=== PATIENT | female | born 1975 | race Caucasian/White ===

== ENCOUNTER → 2017-05-08 | Day surgery (SDC) | payer OTHER ==
[~2017-05-08] MED LIST: LIDOCAINE 2% PF Vial for OR 5 ML VIAL.; PROPOFOL 40 ML IV
[2017-05-08] MEDS: IV RINGERS,LACTATED 1000ML 1,000 ML IV (09:41)
[2017-05-08 10:39] LABS: NEG OBC UR NEG; POS OBC UR POS
== END | disposition home or self-care (01) ==
LOC: ENDOS 08:53
DX: K64.0 First degree hemorrhoids (principal); J45.909 Unspecified asthma, uncomplicated; K21.9 Gastro-esophageal reflux disease without esophagitis; M19.90 Unspecified osteoarthritis, unspecified site; Z87.01 Personal history of pneumonia (recurrent); Z88.0 Allergy status to penicillin
CPT/HCPCS: 45378; 81025; J2704

== ENCOUNTER → 2017-09-16 | Outpatient (CLI) | payer OTHER ==
[~2017-09-16] MED LIST changes: +IOHEXOL 180 MG/ML 10 ML VIAL.; -LIDOCAINE 2% PF Vial for OR 5 ML VIAL.; -PROPOFOL 40 ML IV; +methylPREDNISolone ACETATE 40 MG/ML VIAL.; +methylPREDNISolone ACETATE 80 MG/ML VIAL.
== END | disposition home or self-care (01) ==
LOC: PNCL 10:29
DX: M51.16 Intervertebral disc disorders with radiculopathy, lumbar region (principal); K21.9 Gastro-esophageal reflux disease without esophagitis; M19.90 Unspecified osteoarthritis, unspecified site; Z79.899 Other long term (current) drug therapy; Z98.890 Other specified postprocedural states; G62.9 Polyneuropathy, unspecified; Z88.2 Allergy status to sulfonamides
CPT/HCPCS: 62323; J1030; J1040; Q9965

== ENCOUNTER → 2017-09-30 | Outpatient (CLI) | payer OTHER | END | disposition home or self-care (01) | LOC: PNCL 09:27 | DX: M51.16 Intervertebral disc disorders with radiculopathy, lumbar region (principal) | CPT/HCPCS: 62323; J1030; J1040; Q9965 ==

== ENCOUNTER → 2017-10-14 | Outpatient (CLI) | payer OTHER | LOC: PNCL 09:04 | DX: M51.16 Intervertebral disc disorders with radiculopathy, lumbar region (principal) | CPT/HCPCS: 62323; J1030; J1040; Q9965 ==

== ENCOUNTER → 2018-04-01 | Outpatient (CLI) | payer OTHER ==
[2017-05-08 10:43] VITALS: BP 103/60
[~2018-04-01] MED LIST changes: +DICL100T PO; +DICL75TA PO; +DOCU100C28 PO; +FLUT9.9S NS; +GABA-585 PO; -IOHEXOL 180 MG/ML 10 ML VIAL.; +LORA10TA3 PO; +LORA10TA68 PO; +MOME13HF IH; +MONT10TA9 PO; +NAPR-683 PO; +XOPENEX HFA15 GM IH; +XOPENEX1.25 MG/3 NEB; -methylPREDNISolone ACETATE 40 MG/ML VIAL.; -methylPREDNISolone ACETATE 80 MG/ML VIAL.
--- NOTE | 2018-04-02 00:08 | PAIN ---
DATE OF SERVICE: 04/01/2018 PROGRESS NOTE FOR PAIN CLINIC DIAGNOSES: Lumbar radiculopathy with lumbar degenerative disk disease and lumbar herniated disk. HISTORY OF PRESENT ILLNESS: The patient is a 42-year-old female who returns for followup status post lumbar epidural steroid injections x 3, last seen 10/14/2017. The patient did very well about 75% improvement after the last injection with the pain returning now in the low back and into the right lower extremity, mostly in the posterior gluteus, posterior thigh, posterior calf with some tenderness and tingling in the foot on the right side as well. The patient reports it is aching and sharp, dull in the back, shooting in the leg and thigh, becoming more constant in the back with time, did very well for about 2 months after the last injection with the pain gradually returning but still doing quite well overall. The patient reports no new motor or sensory deficits and no new bowel or bladder incontinence or other complaints. The patient reports the pain is 6 on a scale of 10 at its worst, 3-4 on average, 3 at its least and is a 3 today. The patient reports that she is sleeping much better, increasing activity, distance walking, working activities, household activities as well as sleeping better. The patient reports no new motor or sensory deficits or other complaints. PHYSICAL EXAMINATION: VITAL SIGNS: The patient's blood pressure 102/60, pulse 85, respirations are 16 and temperature 98.1 degrees Fahrenheit. Height is 5 feet 3 inches and weight is 192 pounds. GENERAL: The patient is awake, alert, oriented, appropriate and very pleasant demeanor. HEENT: Head shows normocephalic and atraumatic. Extraocular movements are intact and symmetrical. Oral cavity: Mucous membranes are moist and pink. Dentition is intact. NECK: Shows anterior throat supple without palpable lymphadenopathy noted. Swallow reflex is symmetrical. CHEST: Shows normal on inspection. Breath sounds are clear to auscultation bilaterally. HEART: Shows S1 and S2 clear. No murmurs auscultated. ABDOMEN: Soft, nontender and nondistended. No palpable organomegaly is noted. No rebound or guarding demonstrated. BACK: Shows spine grossly in the midline. Normal appearing thoracic kyphosis and minor flattening of the lumbar lordotic curvature. Lumbar paraspinous musculature shows symmetrical on inspection, on palpation shows some moderate tenderness throughout the upper, middle and lower distribution of the paraspinous muscles diffusely without radiation. The patient has good rotational motion of the lumbar spine, both laterally as well as extension and flexion without significant difficulty. No tenderness over the sacrum or sacroiliac regions. EXTREMITIES: Lower extremities show deep tendon reflexes 2+ in the patellar, 1+ tendo-calcaneus tendons. Motor exam is approximately 4 on a scale 5 over the right with dorsiflexion and extension, 5/5 on the left, quadriceps and hamstring flexion 5/5 equal bilaterally. Peripheral pulses are 1+ posterior tibial. No peripheral edema is noted bilaterally. Straight leg raise noted to be mildly positive on the right at approximately 40-45 degrees but decreased with knee flexion, left side is negative. The patient's old chart was reviewed as well as her current medication regimen updated. Current review of systems updated today as well. The patient's options were discussed. We will preauthorize the patient for a lumbar epidural steroid injection. She did very well with these in the past and would like to proceed with repeat injection. The patient will continue to do stretching and strengthening exercises on her own as she has been doing as well as walking daily, which she does quite a bit at work as well as on her own outside of work. The patient will follow up in approximately 2 weeks and plan on lumbar epidural steroid injection at that time. DOLORES PARADA MD DR: STEFANO/regina JOB#: [id number] / [id number]
== END | disposition home or self-care (01) ==
LOC: PNCL 09:18
PROVIDERS: ATTEND Anesthesiology
DX: M51.16 Intervertebral disc disorders with radiculopathy, lumbar region (principal)
CPT/HCPCS: 99212

== ENCOUNTER → 2018-04-16 | Outpatient (CLI) | payer OTHER ==
[2017-05-08 10:43] VITALS: BP 103/60
[~2018-04-16] MED LIST changes: +IOHEXOL 180 MG/ML 10 ML VIAL. ONE; +methylPREDNISolone ACETATE 40 MG/ML VIAL. ONE; +methylPREDNISolone ACETATE 80 MG/ML VIAL. ONE
--- NOTE | 2018-04-16 20:16 | PAIN ---
DATE OF SERVICE: 04/16/2018 PROGRESS NOTE FOR PAIN CLINIC DIAGNOSES: Lumbar radiculopathy with lumbar degenerative disk disease and lumbar herniated disk. HISTORY OF PRESENT ILLNESS: The patient is a 42-year-old female who returns for followup status post previous lumbar epidural steroid injections with good results about 70% improvement to 75% improvement overall. The pain is returning in the low back and right lower extremity, posterior gluteus, posterior thigh and posterior calf; tingling, aching, shooting, throbbing, radiating, becoming more severe, on and off in intensity, worse with walking, standing, changing positions, better with sitting or lying down but awakens her from sleep occasionally if she lies on her right side. The patient reports initially she is able to return to work duties, doing household activities with greater ease and comfort as well as walking with much more comfort. The patient reports no new motor or sensory deficits and no new bowel or bladder incontinence. Reports her pain is 7 on a scale of 10 at its worst, 6 on average and a 4 at its least and is a 4 today. The patient reports otherwise doing well. I would like to proceed with her next injection today. PHYSICAL EXAMINATION: VITAL SIGNS: The patient's blood pressure 123/69, pulse 77, respirations are 18 and temperature 97.7 degrees Fahrenheit. Height is 5 feet 3 inches and weight is 189 pounds. GENERAL: The patient is awake, alert, oriented, appropriate and very pleasant demeanor. HEENT: Head shows normocephalic and atraumatic. Extraocular movements are intact and symmetrical. Oral cavity: Mucous membranes are moist and pink. Dentition is intact. NECK: Shows anterior throat supple without palpable lymphadenopathy noted. Swallow reflex is symmetrical. CHEST: Shows normal on inspection. Breath sounds clear to auscultation bilaterally. HEART: Shows S1 and S2 clear. No murmurs auscultated. ABDOMEN: Obese, soft, nontender and nondistended. No palpable organomegaly is noted. No rebound or guarding demonstrated. BACK: Shows spine grossly in the midline. Normal-appearing thoracic kyphosis and lumbar lordotic curvature. Lumbar paraspinous muscle shows symmetrical on inspection and palpation shows some moderate tenderness but only diffusely in the low lumbar distribution without radiation. EXTREMITIES: Lower extremities show deep tendon reflexes 2+ in the patellar, 1+ tendo-calcaneus tendons. Motor exam is approximately 4 on a scale of 5 with right dorsiflexion and extension, 5/5 on the left. Peripheral pulses are 1+ posterior tibial. No peripheral edema is noted. Options were discussed with the patient. The patient's old chart was reviewed as well as her current medication regimen updated. Current review of systems updated today as well. We will proceed with a first in this series of lumbar epidural steroid injection today with fluoroscopic guidance. Risks were again discussed including, but not limited to bleeding, infection, possibility of epidural hematoma and subsequent neurological compromise, dural puncture, headaches, spinal cord and/or nerve damage, side effects of steroid medication and poor results regarding pain control. The patient understands and wished to proceed. The patient will return to the clinic in approximately 2 weeks for followup, was counseled as to return appointment, activity level and side effects to be aware of. DIAGNOSES: Lumbar radiculopathy with lumbar degenerative disk disease and lumbar herniated disk. PROCEDURES: Lumbar epidural steroid injection, translaminar approach, L5-S1 level using C-arm fluoroscopic guidance under sterile prep and drape using local anesthetic. MEDICATION INJECTED: A total of 120 mg Depo-Medrol plus 10 mL of preservative-free normal saline and 2 mL of Isovue for contrast. CONDITION AT DISCHARGE: Stable. The patient tolerated the procedure well and had no complications. DOLORES PARADA MD DR: STEFANO/regina JOB#: [id number] / [id number]
== END | disposition home or self-care (01) ==
LOC: PNCL 07:53
PROVIDERS: ATTEND Anesthesiology
DX: M51.16 Intervertebral disc disorders with radiculopathy, lumbar region (principal); Z88.2 Allergy status to sulfonamides
CPT/HCPCS: 62323; J1030; J1040; Q9965

== ENCOUNTER → 2018-06-30 | Outpatient (CLI) | payer OTHER ==
[2017-05-08 10:43] VITALS: BP 103/60
[~2018-06-30] MED LIST changes: -IOHEXOL 180 MG/ML 10 ML VIAL. ONE; -methylPREDNISolone ACETATE 40 MG/ML VIAL. ONE; -methylPREDNISolone ACETATE 80 MG/ML VIAL. ONE
--- NOTE | 2018-06-30 16:01 | PAIN ---
DATE OF SERVICE: 06/30/2018 DIAGNOSES: Lumbar radiculopathy with lumbar degenerative disk disease, lumbar herniated disk. HISTORY OF PRESENT ILLNESS: The patient is a 42-year-old female who returns for followup status post lumbar epidural steroid injection on 04/16/2018. The patient did very well with this, with about 60% improvement initially from the injection, but the pain is returning now in the right greater than left lower extremity, with some weakness in the right leg, worse over the past week or two. For the first month, 4-5 weeks, she was doing much better, with the pain returning now over the past week or so. The patient reports it is 7 on a scale of 10 at its worst, 4 on average, 4 at its least and is a 4 today. The patient reports it is aching, shooting, tingling, constant, becoming more radiating, burning, posterior gluteus, posterior thigh, posterior calf, more on the right than the left, also in the sole of the foot and the heel, feels like a burning, stinging pain on the right side that is becoming more constant. The patient reports it is waking her up from sleep at night. She has been applying heat packs which helps, but it has been very difficult to control. The patient reports no new motor or sensory deficits, no new bowel or bladder incontinence or other complaints, but initially was doing much better with distance walking, doing work and household activities with much greater ease and comfort, now significantly returning again, more so on the right than the left lower extremity in a radicular fashion and L5-S1 dermatomal distribution. PHYSICAL EXAMINATION: VITAL SIGNS: The patient's blood pressure 117/43, pulse 66, respirations 16, temperature 98.2 degrees Fahrenheit, height 5 feet 3 inches, weight is 195 pounds. GENERAL: The patient is awake, alert, oriented, appropriate, very pleasant demeanor. HEENT: Head is normocephalic, atraumatic. Extraocular movements are intact and symmetrical. Oral cavity: Mucous membranes moist and pink. Dentition intact. NECK: Shows anterior throat supple without palpable lymphadenopathy noted. Swallow reflex symmetrical. CHEST: Shows normal with inspection. Breath sounds clear to auscultation bilaterally. HEART: Shows S1, S2 clear. No murmurs auscultated. ABDOMEN: Obese, soft, nontender, nondistended. No palpable organomegaly is noted. No rebound or guarding demonstrated. BACK: Shows spine grossly in the midline. Normal appearing thoracic kyphosis and lumbar lordotic curvature. Lumbar paraspinous muscle shows symmetrical on inspection, on palpation shows some moderate tenderness diffusely bilaterally, but only diffusely without significant radiation. EXTREMITIES: The patient's lower extremities show deep tendon reflexes at 2+ in the patellar, 1+ tendo-calcaneus tendons. Motor exam is approximately 4 on a scale of 5 with right dorsiflexion, extension, 5/5 on the left. Peripheral pulses are 1+ posterior tibia. No peripheral edema is noted bilaterally. Options were discussed with the patient. The patient's old chart was reviewed as her current medication regimen updated. Current review of systems updated today as well. We will proceed with a preauthorization for additional lumbar epidural steroid injections. She did very well after the first injection with about 60% improvement for the first 5-6 weeks, now pain returning again worse on the right than the left lower extremity in radicular fashion in an L5-S1 dermatomal pattern. We will preauthorize the patient for a translaminar L5-S1 lumbar epidural steroid injection. Once this is approved, the patient will return and proceed at that time. DOLORES PARADA MD DR: STEFANO/regina JOB#: [id number] / [id number]
== END | disposition home or self-care (01) ==
LOC: PNCL 13:41
PROVIDERS: ATTEND Anesthesiology
DX: M51.16 Intervertebral disc disorders with radiculopathy, lumbar region (principal)
CPT/HCPCS: G0463

== ENCOUNTER → 2018-07-02 | Outpatient (CLI) | payer OTHER ==
[2017-05-08 10:43] VITALS: BP 103/60
[~2018-07-02] MED LIST changes: +IOHEXOL 180 MG/ML 10 ML VIAL. ONE; +methylPREDNISolone ACETATE 40 MG/ML VIAL. ONE; +methylPREDNISolone ACETATE 80 MG/ML VIAL. ONE
--- NOTE | 2018-07-02 17:21 | PAIN ---
DATE OF SERVICE: 07/02/2018 DIAGNOSES: Lumbar radiculopathy with lumbar degenerative disk disease, lumbar herniated disk HISTORY OF PRESENT ILLNESS: The patient is a 42-year-old female who returns for followup status post lumbar epidural steroid injection x 1 on 04/16/2018. The patient did well with this, about 60% improvement after the injection with the pain returning and she was seen 2 days ago for a preauthorization. She has obtained that now, would like to proceed with a second lumbar epidural steroid injection. At this time, the patient reports pain across the low back and the right lower extremity, posterior gluteus, posterior thigh, posterior calf, tingling, radiating, becoming more constant, sharp, shooting pain, throbbing in the leg as well and becoming more constant pain. The patient reports it is a 7 on a scale of 10 at its worst, 4 on average, 3 at its least and is a 4 today. The patient reports no new motor or sensory deficits, no new bowel or bladder incontinence. PHYSICAL EXAMINATION: VITAL SIGNS: The patient's blood pressure is 132/70, pulse 72, respirations 16. The patient's temperature 97.9 degrees Fahrenheit, height is 5 feet 3 inches and weight is 195 pounds. GENERAL: The patient is awake, alert, oriented, appropriate, very pleasant demeanor. HEENT: Shows normocephalic, atraumatic. Extraocular movements intact and symmetrical. Oral cavity: Mucous membranes moist and pink. Dentition is intact. NECK: Shows anterior throat supple without palpable lymphadenopathy noted. Swallow reflex is symmetrical. CHEST: Shows normal with inspection. Breath sounds clear to auscultation bilaterally. HEART: Shows S1, S2 clear. No murmurs auscultated. ABDOMEN: Soft, nontender, nondistended. No palpable organomegaly is noted. No rebound or guarding demonstrated. BACK: Shows spine grossly in the midline. Normal appearing thoracic kyphosis and some minor flattening of lumbar lordotic curvature. Lumbar paraspinous musculature shows symmetrical on inspection, on palpation shows some moderate tenderness diffusely bilaterally without radiation. EXTREMITIES: The patient's lower extremities show deep tendon reflexes at 2+ in the patellar, 1+ tendo calcaneus tendons. Motor exam is approximately 4 on a scale of 5 on the right with dorsiflexion and extension, 5/5 on the left. Peripheral pulses are 1+ posterior tibia. No peripheral edema is noted bilaterally. Options were discussed with the patient. The patient's old chart was reviewed as her current medication regimen and updated. Current review of systems is updated today as well and we will proceed with a second lumbar epidural steroid injection today with fluoroscopic guidance. Risks were again discussed including, but not limited to bleeding, infection, possibility of epidural hematoma and subsequent neurological compromise, dural puncture headache, spinal cord and/or nerve damage, side effects of steroid medication and poor results regarding pain control. The patient understands and wished to proceed. The patient to return to clinic in approximately 2 weeks for followup, was counseled as to return appointment, activity level and side effects to be aware of. DIAGNOSES: Lumbar radiculopathy with lumbar degenerative disk disease, lumbar herniated disk. PROCEDURE: Lumbar epidural steroid injection, translaminar approach L5-S1 level using C-arm fluoroscopic guidance under sterile prep and drape using local anesthetic. MEDICATION INJECTED: A total of 120 mg Depo-Medrol plus 10 mL of preservative-free normal saline and 2 mL of Isovue for contrast. CONDITION AT DISCHARGE: Stable. The patient tolerated procedure well, had no complications. DOLORES PARADA MD DR: STEFANO/regina JOB#: [id number] / [id number]
== END | disposition home or self-care (01) ==
LOC: PNCL 11:40
PROVIDERS: ATTEND Anesthesiology
DX: M51.16 Intervertebral disc disorders with radiculopathy, lumbar region (principal); M79.661 Pain in right lower leg; Z98.890 Other specified postprocedural states
CPT/HCPCS: 62323; J1030; J1040; Q9965

== ENCOUNTER → 2018-07-23 | Outpatient (CLI) | payer OTHER ==
[2017-05-08 10:43] VITALS: BP 103/60
[~2018-07-23] MED LIST changes: -IOHEXOL 180 MG/ML 10 ML VIAL. ONE; -methylPREDNISolone ACETATE 40 MG/ML VIAL. ONE; -methylPREDNISolone ACETATE 80 MG/ML VIAL. ONE
--- NOTE | 2018-07-24 00:45 | PAIN ---
DATE OF SERVICE: 07/23/2018 PROGRESS NOTE FOR PAIN CLINIC DIAGNOSES: Lumbar radiculopathy with lumbar degenerative disk disease, lumbar herniated disk. HISTORY OF PRESENT ILLNESS: The patient is a 42-year-old female who returns for followup status post lumbar epidural steroid injection x 2. The patient reports about 70% improvement after the last injection, still doing well, still some pain in the low back, right lower extremity. The patient was awaiting preauthorization, has obtained that now, would like to proceed. The patient reports the pain is 7 on a scale of 10 at its worst, 4 to 5 on average and 2 at its least and is a 4 today. The patient reports it is across the low back and right lower extremity, posterior gluteus, posterior thigh, posterior calf, aching, sharp, dull, shooting, tingling, burning, becoming more constant, more radiating in the right lower extremity. The patient reports no loss of motor function, but still significant pain in the right leg and low back as described. The patient reports no new motor or sensory deficits, no new bowel or bladder incontinence or other complaints. PHYSICAL EXAMINATION: VITAL SIGNS: The patient's blood pressure 94/61, pulse 70, respirations are 16, temperature 97.8 degrees Fahrenheit, and weight is 198 pounds. GENERAL: The patient is awake, alert, oriented, appropriate, very pleasant demeanor. HEENT: Head is normocephalic, atraumatic. Extraocular movements intact and symmetrical. Oral cavity: Mucous membranes moist and pink. Dentition intact. NECK: Shows anterior throat supple without palpable lymphadenopathy noted. Swallow reflex is symmetrical. CHEST: Shows normal on inspection. Breath sounds clear to auscultation bilaterally. HEART: Shows S1, S2 clear. No murmurs auscultated. ABDOMEN: Soft, nontender, nondistended. No palpable organomegaly noted. Obese. BACK: Shows spine grossly in the midline. Normal appearing thoracic kyphosis and lumbar lordotic curvature. Lumbar paraspinous muscle shows symmetrical on inspection with palpation shows some moderate tenderness only in the lower lumbar distribution bilaterally without radiation, without trigger points or atrophy or hypertrophy. The patient has good rotational motion of lumbar spine, both laterally as well as extension and flexion without difficulty. EXTREMITIES: The patient's lower extremities show deep tendon reflexes 2+ in the patellar, 1+ tendo-calcaneus tendon. Motor exam is approximately 4 on a scale of 5 on the right dorsiflexion, extension and 5/5 on the left. Peripheral pulses are 1+ posterior tibial. No peripheral edema is noted. Options were discussed with the patient. The patient's old chart was reviewed as well as her current medication regimen updated. Current review of systems updated today as well. We will proceed with a third in the series of lumbar epidural steroid injection today with fluoroscopic guidance. Risks were again discussed including, but not limited to bleeding, infection, possibility of epidural hematoma, subsequent neurological compromise, dural puncture, headaches, spinal cord and/or nerve damage, side effects of steroid medication and poor results regarding pain control. The patient understands and wished to proceed. The patient will return to clinic in approximately 2 weeks for followup, was counseled as to return appointment, activity level and side effects to be aware of. DIAGNOSES: Lumbar radiculopathy with lumbar degenerative disk disease, lumbar herniated disk. PROCEDURE: Lumbar epidural steroid injection, translaminar approach at the L5-S1 level using C-arm fluoroscopic guidance under sterile prep and drape using local anesthetic. MEDICATION INJECTED: A total of 120 mg Depo-Medrol plus 10 mL of preservative-free normal saline and 2 mL of Isovue for contrast. CONDITION AT DISCHARGE: Stable. The patient tolerated the procedure well, had no complications. DOLORES PARADA MD DR: STEFANO/regina JOB#: [id number] / [id number]
== END | disposition home or self-care (01) ==
LOC: PNCL 10:10
PROVIDERS: ATTEND Anesthesiology
DX: M51.16 Intervertebral disc disorders with radiculopathy, lumbar region (principal); Z88.2 Allergy status to sulfonamides
CPT/HCPCS: 62323; Q9965

== ENCOUNTER → 2018-10-05 | Outpatient (CLI) | payer OTHER ==
[2017-05-08 10:43] VITALS: BP 103/60
--- NOTE | 2018-10-06 02:16 | PAIN ---
DATE OF SERVICE: 10/05/2018 DIAGNOSIS: Lumbar radiculopathy with lumbar degenerative disk disease and lumbar herniated disk. HISTORY OF PRESENT ILLNESS: The patient is a 42-year-old female who returns for followup status post lumbar epidural steroid injections x 3, most recently 07/23/2018. The patient did very well with that, approximately 70% improvement for several weeks. The patient reports about 2 days ago the pain became much more noticeable and different in her low back, is now on her left side as well as the right side with some spasms and pain in the back itself. The patient went to the Emergency Department near her and received a Toradol shot, which helped temporarily, but was able to straighten her back up better. The patient reports no inciting incident, no new injuries or accidents or any other cause that she can pinpoint for the pain to change or get worse. We did review her MRI scan from about 1 year ago showing significant L5-S1 disk herniation abutting the S1 nerve roots bilaterally. The patient reports the pain is burning, sharp, tight, radiating, becoming more constant into the lower extremities, posterior gluteus, posterior thighs, again worse on the right, but present now on the left as well and some pain radiating up into the mid back on the left side also. The patient reports no loss of motor function, but significant pain with activity, standing, walking, even trouble sleeping, bending, flexing is becoming very difficult for her and especially ambulating. The patient rates pain as 7 on a scale of 10 at its worst, 5-6 on average, 5 at its least and is 6 today. The patient reports no new motor or sensory deficits, no new bowel or bladder incontinence or other complaints. PHYSICAL EXAMINATION: VITAL SIGNS: The patient's blood pressure is 94/52, pulse 83, respirations 16, temperature 98.1 degrees Fahrenheit, weight is 202 pounds. GENERAL: The patient is awake, alert, oriented, appropriate, very pleasant demeanor. HEENT: Head is normocephalic, atraumatic. Extraocular movements are intact, symmetrical. Oral cavity: Mucous membranes moist and pink. Dentition is intact. NECK: Shows anterior throat supple without palpable lymphadenopathy noted. Swallow reflex symmetrical. CHEST: Shows normal with inspection. Breath sounds clear to auscultation bilaterally. HEART: Shows S1, S2 clear. No murmurs auscultated. ABDOMEN: Obese, soft, nontender, nondistended. No palpable organomegaly is noted. No rebound or guarding demonstrated. BACK: Shows spine grossly in the midline. Normal-appearing thoracic kyphosis and lumbar lordotic curvature. Lumbar paraspinous muscle shows symmetrical on inspection, very firm musculature throughout the upper, middle and lower distribution of paraspinous muscles, which are bilaterally without atrophy, hypertrophy, without radiation of pain. The patient has good rotational motion of lumbar spine, both laterally as well as extension and flexion with some moderate tenderness with forward flexion on the left side of the lumbar spine. EXTREMITIES: Lower extremities show deep tendon reflexes 2+ in the patellar, 1+ tendo-calcaneus tendons. Motor exam is strong with approximately 4 on a scale of 5 right dorsiflexion and extension, 5/5 on the left. Peripheral pulses are 1+ posterior tibia. No peripheral edema is noted bilaterally. Options were discussed with the patient. The patient's old chart was reviewed as her current medication regimen updated. Current review of systems updated today as well. We will preauthorize the patient for a lumbar epidural steroid injection as the first in this new series. It has been 6 months since her original back in 04/2018. The patient also will check MRI scan, it has been over a year since she has had one with new findings of bilateral radiculopathy with history of L5-S1 herniated disk and new symptoms of bilateral radiculopathy and weakness in the lower extremities, right and left. The patient will follow up after MRI scan. We will plan on potential lumbar epidural steroid injection at that time with approval. DOLORES PARADA MD DR: STEFANO/regina JOB#: [id number] / [id number]
== END | disposition home or self-care (01) ==
LOC: PNCL 07:33
PROVIDERS: ATTEND Anesthesiology
DX: M51.16 Intervertebral disc disorders with radiculopathy, lumbar region (principal)
CPT/HCPCS: G0463

== ENCOUNTER → 2018-10-18 | Outpatient (CLI) | payer OTHER ==
[2017-05-08 10:43] VITALS: BP 103/60
[~2018-10-18] MED LIST changes: +IOHEXOL 180 MG/ML 10 ML VIAL. ONE; +methylPREDNISolone ACETATE 40 MG/ML VIAL. ONE; +methylPREDNISolone ACETATE 80 MG/ML VIAL. ONE
--- NOTE | 2018-10-18 23:25 | PAIN ---
DATE OF SERVICE: 10/18/2018 PROGRESS NOTE FOR PAIN CLINIC: DIAGNOSES: Lumbar radiculopathy with lumbar degenerative disk disease with lumbar herniated disk. HISTORY OF PRESENT ILLNESS: The patient is a 42-year-old female who returns for followup status post lumbar epidural steroid injections x 3, most recently 07/23/2018. The patient did very well with these, but the pain is returning in the low back and bilateral lower extremities, somewhat more on the left than the right at this time. We did get an MRI scan obtained, which shows L5-S1 degenerative with loss of disk height identified with diffuse loss of disk signal, small diffuse posterior disk bulge identified, lateral recesses are partially effaced, both foramina appear mildly narrowed. Other levels are normal. The patient reports still significant pain in the low back, bilateral lower extremities, somewhat more on the left than the right at this time, but present bilaterally, posterior gluteus, posterior thighs, posterior calves. The patient reports it is a 7 on a scale of 10 at its worst, 5 on average, 4 at its least and is a 5 today. The patient reports it is sharp and dull in the back as well as tight in the back and thigh, shooting into the lower extremities, burning, tingling, radiating as well. The patient reports a pressure sensation, also some urgency with urination, but no incontinence. The patient reports no new bowel or bladder incontinence or other complaints. No new motor or sensory deficits. PHYSICAL EXAMINATION: VITAL SIGNS: The patient's blood pressure is 124/56, pulse 84, respirations 18, temperature 97.8 degrees Fahrenheit. Height is 5 feet 3 inches, weight is 200 pounds. GENERAL: The patient is awake, alert, oriented, appropriate, very pleasant demeanor. HEENT: Head shows normocephalic, atraumatic. Extraocular movements are intact, symmetrical. Oral cavity: Mucous membranes moist and pink. Dentition is intact. NECK: Shows anterior throat supple without palpable lymphadenopathy noted. Swallow reflex is symmetrical. CHEST: Shows normal on inspection. Breath sounds clear to auscultation bilaterally. HEART: Shows S1, S2 clear. No murmurs auscultated. ABDOMEN: Soft, nontender, nondistended. No palpable organomegaly is noted. No rebound or guarding demonstrated. BACK: Shows spine grossly in the midline. Normal appearing thoracic kyphosis and lumbar lordotic curvature. The patient's neck shows good rotational motion of lumbar spine, both laterally as well as extension and flexion without significant difficulty or pain reported. EXTREMITIES: The patient's lower extremities show deep tendon reflexes at 2+ in the patellar, 1+ tendo-calcaneus tendons. Motor exam is strong with 5/5 dorsiflexion on the left and 4/5 on the right. Peripheral pulses are 1+ posterior tibia. No peripheral edema is noted bilaterally. Options were discussed with the patient. The patient's old chart was reviewed as her current medication regimen updated. Current review of systems updated today as well. We will proceed with a first in the series of lumbar epidural steroid injection today with fluoroscopic guidance. Risks were again discussed including, but not limited to bleeding, infection, possibility of epidural hematoma, subsequent neurologic compromise, dural puncture headaches, spinal cord and/or nerve damage, side effects of steroid medication and poor results regarding pain control. The patient understands and wished to proceed. The patient will return to clinic in approximately 2 weeks for followup. She was counseled as to return appointment, activity level and side effects to be aware of. DIAGNOSES: Lumbar radiculopathy with lumbar degenerative disk disease with lumbar herniated disk. PROCEDURE: Lumbar epidural steroid injection, translaminar approach at L5-S1 level using C-arm fluoroscopic guidance under sterile prep and drape using local anesthetic. MEDICATION INJECTED: A total of 120 mg Depo-Medrol plus 10 mL of preservative-free normal saline and 2 mL of Isovue for contrast. CONDITION AT DISCHARGE: Stable. The patient tolerated procedure well, had no complications. DOLORES PARADA MD DR: STEFANO/regina JOB#: [id number] / [id number]
== END | disposition home or self-care (01) ==
LOC: PNCL 09:16
PROVIDERS: ATTEND Anesthesiology
DX: M51.16 Intervertebral disc disorders with radiculopathy, lumbar region (principal); Z88.2 Allergy status to sulfonamides
CPT/HCPCS: 62323; J1030; J1040; Q9965

== ENCOUNTER → 2018-11-05 | Outpatient (CLI) | payer OTHER ==
[2017-05-08 10:43] VITALS: BP 103/60
--- NOTE | 2018-11-06 05:12 | PAIN ---
DATE OF SERVICE: 11/05/2018 PROGRESS NOTE FOR PAIN CLINIC: DIAGNOSES: Lumbar radiculopathy with lumbar degenerative disk disease, lumbar herniated disk. HISTORY OF PRESENT ILLNESS: The patient is a 42-year-old female who returns for followup status post lumbar epidural steroid injection x 1 in the series. The patient reports about 40% improvement overall after the last injection, the tingling pain has gone in her legs, but she still has some paresthesia and some crawling sensations in the anterior thighs. The patient reports mostly in the posterior gluteus, across the low back radiating to the posterior thighs, posterior calves, again with some tingling and some crawling sensation in the anterior thigh. The patient reports also some decreased mobility with coordination, has been stumbling and tripping almost daily. Also, some increased urgency with both the bowel and bladder, but without incontinence. The patient reports it wakes her up from sleep about every 5 or 6 hours. She has increased her distance walking, doing better with activities at home and work as well as traveling with better ease and comfort. The patient reports no new motor or sensory deficits. No new bowel and bladder incontinence. Rates her pain as a 5 on a scale of 10 at its worse over the past week, 3-5 on average, 2 at its least and is 3 today. The patient reports it is aching and tight, radiating, becoming more constant with walking, standing, better with sitting or lying down. PHYSICAL EXAMINATION: VITAL SIGNS: The patient's blood pressure is 128/79, pulse 80, respirations 18, temperature 98.0 degrees Fahrenheit, height is 5 feet 3 inches, weighs 201 pounds. GENERAL: The patient is awake, alert, oriented, appropriate, very pleasant demeanor. HEENT: Head shows normocephalic, atraumatic. Extraocular muscles are intact and symmetrical. Oral cavity: Mucous membranes moist and pink. Dentition is intact. NECK: Shows anterior throat supple without palpable lymphadenopathy noted. Swallow reflex symmetrical. CHEST: Shows normal with inspection. Breath sounds are clear to auscultation bilaterally. HEART: S1, S2 clear. No murmurs auscultated. ABDOMEN: Soft, nontender, nondistended. BACK: Shows spine grossly in the midline. Lumbar paraspinous motion shows symmetrical on inspection, on palpation shows some moderate tenderness throughout the upper, middle and lower distribution of paraspinous muscles, but without tenderness over the spinous processes, sacrum or sacroiliac regions. The patient has good rotational motion of lumbar spine both laterally as well as extension and flexion without significant difficulty. EXTREMITIES: Lower extremities show deep tendon reflexes at 2+ in the patellar, 1+ tendo calcaneus tendons. Motor exam is approximately 4 on a scale of 5 right dorsiflexion and extension, 5/5 on the left. Peripheral pulses of 1+ posterior tibia. Options were discussed with the patient. The patient's old chart was reviewed as well as her current medication regimen updated. Current review of systems updated today as well. We will proceed with the second in the series of lumbar epidural steroid injection today under fluoroscopic guidance. Risks were again discussed including, but not limited to bleeding, infection, possibility of epidural hematoma and subsequent neurological compromise, dural puncture headaches, spinal cord and/or nerve damage, side effects of steroid medication and poor results regarding pain control. The patient understands and wished to proceed. The patient will return to clinic in approximately 2 weeks for followup, was counseled as to return appointment, activity level and side effects to be aware of. DIAGNOSES: Lumbar radiculopathy with lumbar degenerative disk disease, lumbar herniated disk. PROCEDURE: Lumbar epidural steroid injection, translaminar approach L5-S1 level using C-arm fluoroscopic guidance under sterile prep and drape using local anesthetic. MEDICATION INJECTED: A total of 120 mg of Depo-Medrol plus 10 mL of preservative-free normal saline and 2 mL of Isovue contrast. CONDITION AT DISCHARGE: Stable. The patient tolerated the procedure well, had no complications. DOLORES PARADA MD DR: STEFANO/regina JOB#: [id number] / [id number]
== END ==
LOC: PNCL 09:00
PROVIDERS: ATTEND Anesthesiology
DX: M51.16 Intervertebral disc disorders with radiculopathy, lumbar region (principal)
CPT/HCPCS: 62323; J1030; J1040; Q9965

== ENCOUNTER → 2019-02-11 | Outpatient (CLI) | payer OTHER ==
[2017-05-08 10:43] VITALS: BP 103/60
[~2019-02-11] MED LIST changes: +MONT10TA49 PO; -MONT10TA9 PO
--- NOTE | 2019-02-11 21:06 | PAIN ---
DATE OF SERVICE: 02/11/2019 DIAGNOSES: Lumbar radiculopathy with lumbar degenerative disk disease with lumbar herniated disk. HISTORY OF PRESENT ILLNESS: The patient is a 43-year-old female who returns for followup status post lumbar epidural steroid injection x 2. The patient reports about 50% improvement after the last injection for about 2 weeks following the injection. The patient reports she has had two instances where she has fallen on stairs once climbing up and once climbing down because of some increased numbness and tingling in her low back and legs, mostly in the right greater than left at this time. Still some aching and itching sensation on the left leg with numbness and tingling in the left foot and aching and tingling, burning, stabbing pain radiating in the right leg. The patient reports it is aching and sharp across the low back, tight and shooting as well, on and off in intensity, but always present to some extent. The patient reports it is worse with sitting in upright position such as in the high back chair and she feels better with lying down, bending her knees up to flatten the lumbar lordotic curvature of the lumbar spine. The patient reports it awakens her from sleep at least every 6-7 hours. The patient reports no loss of motor function, no new motor or sensory deficits, no bowel or bladder incontinence. The patient has difficulty with her right foot planting it enough to negotiate stairs as well. PHYSICAL EXAMINATION: VITAL SIGNS: The patient's blood pressure 93/57, pulse 80, respirations 16, temperature 98.0 degrees Fahrenheit, height is 5 feet 3 inches and weight is 202 pounds. GENERAL: The patient is awake, alert, oriented, appropriate, very pleasant demeanor. HEENT: Head shows normocephalic, atraumatic. Extraocular movements are intact and symmetrical. Oral cavity: Mucous membranes moist and pink. NECK: Shows anterior throat supple. CHEST: Shows normal on inspection. Breath sounds clear to auscultation bilaterally. HEART: Shows S1, S2 clear. ABDOMEN: Soft, nontender, nondistended. BACK: Shows spine grossly in the midline, normal-appearing cervical lordotic curvature, thoracic kyphotic curvature and lumbar lordotic curvature. Lumbar paraspinous muscle shows symmetrical on inspection, with palpation shows some moderate tenderness throughout the middle and lower distribution of paraspinous muscles diffusely without radiation. EXTREMITIES: Lower extremities show deep tendon reflexes 2+ in the patellar, 1+ tendo-calcaneus tendons. Motor exam is approximately 4 on a scale of 5 on the right with dorsiflexion, extension and 5/5 on the left. Peripheral pulses are 1+ posterior tibia. No peripheral edema is noted bilaterally. Options were discussed with the patient. The patient's old chart was reviewed as her current medication regimen updated. Current review of systems updated today as well. We will proceed with a third in the series of lumbar epidural steroid injection today with fluoroscopic guidance. Risks were again discussed including, but not limited to bleeding, infection, possibility of epidural hematoma, subsequent neurological compromise, dural puncture, headaches, spinal cord and/or nerve damage, side effects of steroid medication and poor results regarding pain control. The patient understands and wished to proceed. The patient will return to clinic in approximately 2 weeks for followup. She was counseled as to return appointment, activity level and side effects to be aware of. The patient is requesting documentation for her place of employment with guidelines, recommendations, and restrictions. The patient has diagnosed medical conditions of lumbar radiculopathy with lumbar herniated disk, major life activities affected by the medical conditions is difficulty with prolonged sitting, prolonged walking, negotiating stairs, social limitations, and use of mitigating measures. The patient should not sit upright position with greater than 20 minutes without lying down for 5-10 minutes with her knees bent to flatten the lumbar spine if sex, inability to perform her job duties if she is not able to change positions as necessary to decrease the pain when she is at work sitting in upright position for her working shift with lying down for 5-10 minutes. This decreases the pain significantly and she is able to work further. Functional limitations imposed on her if these are not utilize that she be unable to perform her work duties as she is unable to sit for prolonged periods, greater than 20-30 minutes, it may become where she is unable to concentrate with her activities at work and focus on her work duties without these accommodations. 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 DIAGNOSES: Lumbar radiculopathy with lumbar degenerative disk disease with lumbar herniated disk. PROCEDURE: Lumbar epidural steroid injection, translaminar approach L5-S1 level using C-arm fluoroscopic guidance under sterile prep and drape using local anesthetic. MEDICATION INJECTED: The patient received a total of 120 mg Depo-Medrol plus 10 mL of preservative-free normal saline and 2 mL of contrast. CONDITION AT DISCHARGE: Stable. The patient tolerated the procedure well, had no complications. DOLORES PARADA MD DR: STEFANO/regina JOB#: [id number] / [id number]
== END ==
LOC: PNCL 09:04
PROVIDERS: ATTEND Anesthesiology
DX: M51.16 Intervertebral disc disorders with radiculopathy, lumbar region (principal)
CPT/HCPCS: 62323; J1030; J1040; Q9965

== ENCOUNTER → 2021-04-24 | Outpatient (CLI) | payer OTHER ==
[2017-05-08 10:43] VITALS: BP 103/60
[~2021-04-24] MED LIST changes: -IOHEXOL 180 MG/ML 10 ML VIAL. ONE; -methylPREDNISolone ACETATE 40 MG/ML VIAL. ONE; -methylPREDNISolone ACETATE 80 MG/ML VIAL. ONE
--- NOTE | 2021-04-24 09:32 | PDOC ---
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 her quite a bit but pain still returning in the low back into the right lower extremity patient reports rating the posterior gluteus posterior thigh posterior calf rate is a nine eight on scale 10 is worse over the past week for an average to its least is a four today patient ports ach ing dull in the back tight in the leg shooting the leg tingling and burning the leg as well as the medial lower leg to the ankle on the right side patient which is radiating constant worse with walking standing changing positions wakes her from sleep about once every 5 hours patient reports no loss of motor function but some occasional foot drop or walking downstairs on the right side. Patient reports no bowel or bladder incontinence but significant frequency and urgency with the frequency of bowel. Patient reports no motor deficits but significant fatigability of the right lower extremity as well. Physical Exam: VS: Blood pressure is 117/62 pulse 87 respirations 18 temperature 102 Fahrenheit height 5 feet 3 inches weight is 201 pounds PE: PHYSICAL EXAMINATION: GENERAL: The patient is awake, alert, oriented, appropriate, very pleasant and demeanor HEENT: Shows normocephalic, atraumatic. Extraocular movements are intact and symmetrical. Oral cavity: Mucous membranes moist and pink. Dentition is intact. NECK: Shows anterior throat supple without palpable lymphadenopathy noted. Swallow reflex symmetrical. CHEST: Shows normal on inspection. Breath sounds are clear bilaterally, distant but no rales or. HEART: Shows S1, S2 clear. No murmurs auscultated. ABDOMEN: Soft, nontender, nondistended, obese. No palpable organomegaly is noted. BACK: Shows spine grossly in the midline. Normal-appearing cervical lordotic curvature. There is slightly increased thoracic kyphosis, some minor flattening of the lumbar lordotic curvature. Lumbar paraspinous muscles show symmetrical on inspection, on palpation shows some moderate tenderness diffusely throughout the upper, middle and lower distribution of the paraspinous muscles without specific trigger points, without radiation of pain. The patient has good rotational motion of the lumbar spine, both laterally as well as extension and flexion without significant difficulty. No tenderness over the spinous processes, sacrum or sacroiliac regions. EXTREMITIES: Lower extremities show deep tendon reflexes 2+ in the patellar and tendo calcaneus tendons. Motor exam is four on a scale of 5 with right dorsiflexion, extension, quadriceps and hamstring flexion and five/5 on the left. Peripheral pulses are 1+ posterior tibial. No peripheral edema is noted bilaterally. Lower extremities are warm and dry. SKIN: Shows warm and dry, good turgor. No edema. No sores, rashes or bruising throughout. Procedure: Procedure: Options were discussed with the patient. Patient chart reviews her current medication regimen updated current review of systems updated today as well. We will preauthorize patient for lumbar epidural steroid injection she is done very well with these in the past and pain returning in a radicular fashion and L5-S1 dermatomal distribution on the right. In meantime, patient will continue with stretching strength exercises as with physical therapy and continue with physical therapy treatments as well formally. Medication Injected: Med Injected: None Condition at Discharge: Condition at Discharge: Condition at discharge is stable. DOLORES PARADA MD Apr 24, 2021 09:32
== END | disposition home or self-care (01) ==
LOC: PNCL 08:41
PROVIDERS: ATTEND Anesthesiology
DX: M51.16 Intervertebral disc disorders with radiculopathy, lumbar region (principal); J45.909 Unspecified asthma, uncomplicated; K21.9 Gastro-esophageal reflux disease without esophagitis; M19.90 Unspecified osteoarthritis, unspecified site; Z79.899 Other long term (current) drug therapy; Z88.2 Allergy status to sulfonamides; Z98.890 Other specified postprocedural states
CPT/HCPCS: 99212; G0463

== ENCOUNTER → 2021-05-06 | Outpatient (CLI) | payer OTHER ==
[2017-05-08 10:43] VITALS: BP 103/60
[~2021-05-06] MED LIST changes: +IOHEXOL 180 MG/ML 10 ML VIAL. ONE; +methylPREDNISolone ACETATE 40 MG/ML VIAL. ONE; +methylPREDNISolone ACETATE 80 MG/ML VIAL. ONE
--- NOTE | 2021-05-06 12:43 | PDOC4 ---
Procedure Note: ICD 10 Code: ICD 10 Code: M54.17 M51.87 Procedure Note: Patient was consented for lumbar epidural steroid injection with fluoroscopic guidance. Risks were discussed including but not limited to: Bleeding, infection, possibility of epidural hematoma and subsequent neurological compromise, dural puncture, headaches, spinal cord and/or nerve damage, side effects of steroid medication, and poor results regarding pain control. Patient understands and wished to proceed. Procedure is lumbar epidural steroid injection under local anesthetic using sterile prep and drape at the L5-S1 level using C-arm fluoroscopic guidance in both AP and lateral views medications injected is 120 mg Depo-Medrol +10mL preservative-free normal saline and 2 mL contrast- condition at discharge is stable patient tolerated procedure well had no complications. DOLORES PARADA MD May 06, 2021 12:43
--- NOTE | 2021-05-06 12:43 | PDOC ---
Progress Note - Pain Clinic Date of Service: DOS: DATE: 05/06/21 TIME: 12:39 Diagnosis: Dx: Lumbar radiculopathy with lumbar degenerative disease and lumbar herniated disc History or Present Illness: HPI: 45-year-old female returns with complaints of low back and right leg and left lower extremity pain had lumbar epidural steroid injection most recently February 2019 with very good results patient report about 7075% improvement the pain returning now over the past several months in the low back right lower extremity posterior gluteus posterior thigh on the right side some on the left as well generally always on the right side but new pain on the left side patient reports it is a 7 on scale 10 is worse over the past week, to its least and 4 on average is a 4 today. Patient reports radiating aching sharp shooting can be cramping stabbing constant severe with walking standing changing positions bett er with sitting or laying down but is been waking her from sleep about every 4-5 hours. Patient reports no bowel or bladder incontinence but significant fatigability of the right lower extremity with activity. Physical Exam: VS: Blood pressure is 115/74 pulse 71 respirations 18 temperature 97.9 F height is 5 feet 3 inches weight is 208 pounds. PE: PHYSICAL EXAMINATION: GENERAL: The patient is awake, alert, oriented, appropriate, very pleasant in demeanor, patient accompanied by her HEENT: Shows normocephalic, atraumatic. Extraocular movements are intact and symmetrical. Oral cavity: Mucous membranes moist and pink. Dentition is intact. NECK: Shows anterior throat supple without palpable lymphadenopathy noted. Swallow reflex symmetrical. CHEST: Shows normal on inspection. Breath sounds are clear bilaterally. HEART: Shows S1, S2 clear. No murmurs auscultated. ABDOMEN: Soft, nontender, nondistended. No palpable organomegaly is noted. BACK: Shows spine grossly in the midline. Normal-appearing cervical lordotic curvature. There is increased thoracic kyphosis, some flattening of the lumbar lordotic curvature. Lumbar paraspinous muscles show symmetrical on inspection, on palpation shows some moderate tenderness diffusely throughout the upper, middle and lower distribution of the paraspinous muscles without specific trigger points, without radiation of pain. The patient has good rotational motion of the lumbar spine, both laterally as well as extension and flexion without significant difficulty. No tenderness over the spinous processes, sacrum or sacroiliac regions. EXTREMITIES: Lower extremities show deep tendon reflexes 2+ in the patellar and tendo calcaneus tendons. Motor exam is 4 on a scale of 5 with right dorsiflexion, extension, quadriceps and hamstring flexion and 5/5 on the left. Peripheral pulses are 1+ posterior tibial. No peripheral edema is noted bilaterally. Lower extremities are warm and dry to touch, equal in color and ap pearance. SKIN: Shows warm and dry, good turgor. No edema. No sores, rashes or bruising throughout. Procedure: Procedure: Options were discussed with patient. Patient chart was reviewed as her current medication regimen updated current review of systems updated today as well. We will proceed with a lumbar epidural steroid injection today with fluoroscopic guidance. Risks were discussed including but not limited to: Bleeding, infection, possibility of epidural hematoma and subsequent neurological compromise, dural puncture, headaches, spinal cord and/or nerve damage, side effects of steroid medication, and poor results regarding pain control. Patient understands and wished to proceed. Patient will return to clinic in approximately 2 weeks for follow-up, was counseled as return appointment, activity level, and side effect to be aware of. Medication Injected: Med Injected: Procedure is lumbar epidural steroid injection under local anesthetic using sterile prep and drape at the L5-S1 level using C-arm fluoroscopic guidance in both AP and lateral views medications injected is 120 mg Depo-Medrol +10mL preservative-free normal saline and 2 mL contrast- condition at discharge is stable patient tolerated procedure well had no complications. Condition at Discharge: Condition at Discharge: Condition at discharge stable, patient tolerated procedure well and had no complications. DOLORES PARADA MD May 06, 2021 12:43
== END | disposition home or self-care (01) ==
LOC: PNCL 11:26
PROVIDERS: ATTEND Anesthesiology
DX: M51.16 Intervertebral disc disorders with radiculopathy, lumbar region (principal); J45.909 Unspecified asthma, uncomplicated; K21.9 Gastro-esophageal reflux disease without esophagitis; M19.90 Unspecified osteoarthritis, unspecified site; Z79.899 Other long term (current) drug therapy; Z88.2 Allergy status to sulfonamides
CPT/HCPCS: 62323; J1030; J1040; Q9965

== ENCOUNTER → 2021-08-27 | Outpatient (CLI) | payer OTHER ==
[2017-05-08 10:43] VITALS: BP 103/60
[~2021-08-27] MED LIST changes: +DEXAMETHASONE PRES.FREE 10 MG/ML VIAL. ONE; -IOHEXOL 180 MG/ML 10 ML VIAL. ONE; -methylPREDNISolone ACETATE 40 MG/ML VIAL. ONE; -methylPREDNISolone ACETATE 80 MG/ML VIAL. ONE
--- NOTE | 2021-08-27 10:31 | PDOC ---
Progress Note - Pain Clinic Date of Service: DOS: DATE: 08/27/21 TIME: 10:28 Diagnosis: Dx: Lumbar radiculopathy with lumbar degenerative disc disease and lumbar herniated History or Present Illness: HPI: 45-year-old female returns for follow-up status post lumbar epidural steroid injection last seen May 06, 2021 patient did very well with about 80% improvement until the past 3 weeks pain began to return and is now new pain on the left side and left leg originally it was only on the right side patient reports is across the low back now into the left hip at times over the past 3 weeks patient reports no specific injury or accident that she is aware of is becoming worse on its own with the pain in the right leg still persistent in the posterior gluteus posterior calf and thigh again prior to the last 3 weeks he was doing much better with distance walking doing household activities work activities travel with greater ease and comfort with sleeping better at night patient reports is beginning to wake her from sleep again the last few weeks about every 6 hours patient reports no loss of motor function no bowel or bladder incontinence rates her pain is a 7 on scale 10 is worse over the past week 3 on average 3 at its least, and is a 3 today. Patient reports no loss of function of the right lower extremity but significant fatigue with walking and standing and prolonged sitting. Physical Exam: VS: Blood pressure is 118/79 pulse 79 respirations are 18 temperature is 98.4 F height 5 feet 3 inches weight is 211 pounds. PE: PHYSICAL EXAMINATION: GENERAL: The patient is awake, alert, oriented, appropriate, very pleasant in demeanor HEENT: Shows normocephalic, atraumatic. Extraocular movements are intact and symmetrical. Oral cavity: Mucous membranes moist and pink. Dentition is intact. NECK: Shows anterior throat supple without palpable lymphadenopathy noted. Swallow reflex symmetrical. CHEST: Shows normal on inspection. Breath sounds are clear bilaterally. HEART: Shows S1, S2 clear. No murmurs auscultated. ABDOMEN: Soft, nontender, nondistended. No palpable organomegaly is noted. BACK: Shows spine grossly in the midline. Normal-appearing cervical lordotic curvature. There is slightly increased thoracic kyphosis, some mild flattening of the lumbar lordotic curvature. Lumbar paraspinous muscles show symmetrical on inspection, on palpation shows some moderate tenderness diffusely throughout the upper, middle and lower distribution of the paraspinous muscles without specific trigger points, without radiation of pain. The patient has good rotational motion of the lumbar spine, both laterally as well as extension and flexion without significant difficulty. No tenderness over the spinous processes, sacrum or sacroiliac regions. EXTREMITIES: Lower extremities show deep tendon reflexes 2+ in the patellar and tendo calcaneus tendons. Motor exam is 4 on a scale of 5 with right dorsiflexion, extension, quadriceps and hamstring flexion and 5/5 on the left. Peripheral pulses are 1+ posterior tibial. No peripheral edema is noted bilaterally. Lower extremities are warm and dry to touch, equal in color and appearance. SKIN: Shows warm and dry, good turgor. No edema. No sores, rashes or bruising throughout. Procedure: Procedure: Options discussed with patient. Patient's old chart was reviewed as her current medication regimen updated current review of systems updated today as well. We will proceed with a lumbar epidural steroid injection today with fluoroscopic guidance. Risks were discussed including but not limited to: Bleeding, infection, possibility of epidural hematoma and subsequent neurological compromise, dural puncture, headaches, spinal cord and/or nerve damage, side effects of steroid medication, and poor results regarding pain control. Patient understands and wished to proceed. Patient will return to clinic in approximate 4 weeks for follow-up, was counseled as to return appointment, activity level, and side effects to be aware of. Medication Injected: Med Injected: Procedure is lumbar epidural steroid injection under local anesthetic using sterile prep and drape at the L5-S1 level using C-arm fluoroscopic guidance in both AP and lateral views medications injected is 20 mg dexamethasone +10mL preservative-free normal saline and 2 mL contrast- condition at discharge is stable patient tolerated procedure well had no complications. Condition at Discharge: Condition at Discharge: Condition at discharge is stable, patient tolerated the procedure well and had no complications. DOLORES PARADA MD Aug 27, 2021 10:31
--- NOTE | 2021-08-27 10:32 | PDOC4 ---
Procedure Note: ICD 10 Code: ICD 10 Code: M54.17 M51.87 Procedure Note: Patient was consented for lumbar epidural steroid injection with fluoroscopic guidance. Risks were discussed including but not limited to: Bleeding, infection, possibility of epidural hematoma and subsequent neurological compromise, dural puncture, headaches, spinal cord and/or nerve damage, side effects of steroid medication, and poor results regarding pain control. Patient understands and wished to proceed. Procedure is lumbar epidural steroid injection under local anesthetic using sterile prep and drape at the L5-S1 level using C-arm fluoroscopic guidance in both AP and lateral views medications injected is 20 mg dexamethasone +10mL preservative-free normal saline and 2 mL contrast- condition at discharge is stable patient tolerated procedure well had no complications. DOLORES PARADA MD Aug 27, 2021 10:32
== END | disposition home or self-care (01) ==
LOC: PNCL 09:16
PROVIDERS: ATTEND Anesthesiology
DX: M51.16 Intervertebral disc disorders with radiculopathy, lumbar region (principal); J45.909 Unspecified asthma, uncomplicated; M19.90 Unspecified osteoarthritis, unspecified site; K21.9 Gastro-esophageal reflux disease without esophagitis; Z79.899 Other long term (current) drug therapy; Z88.2 Allergy status to sulfonamides
CPT/HCPCS: 62323; J1100

== ENCOUNTER → 2021-10-09 | Outpatient (CLI) | payer OTHER ==
[2017-05-08 10:43] VITALS: BP 103/60
[~2021-10-09] MED LIST changes: -DEXAMETHASONE PRES.FREE 10 MG/ML VIAL. ONE
--- NOTE | 2021-10-09 10:09 | PDOC ---
Progress Note - Pain Clinic Date of Service: DOS: DATE: 10/09/21 TIME: 09:59 Diagnosis: Dx: Lumbar radiculopathy with lumbar degenerative disease and lumbar herniated disc History or Present Illness: HPI: 45-year-old female returns for follow-up status post lumbar epidural steroid injection x2. Patient reports about 80% improvement initially but now about 40% overall and with pain in the low back and right lower extremity. Patient reports initially much better with increased walking greater distances standing for greater distances traveling sleeping better now is waking her from sleep better in 4 to 5 hours. She reports pain in the low back rating the right lower extremity posterior gluteus posterior thigh posterior calf and foot with some tenderness now which is new in the left heel when she is walking and standing which is separate from the pain in her back. Patient has not had any work-up on this currently but significant pain with all walking at all times and is a deep bruise sensation in the left heel. Patient report is aching in the back as sharp in the leg in the thigh shooting in the leg in the thigh electric as well tingling in her foot and her leg constant and radiating to the back as well as her left heel on and off in intensity but present daily. Patient rates her pain as a 7 on scale 10 is worse over the past week for an average 3 to [place] is a 4 today. Patient reports no bowel or bladder incontinence. Physical Exam: VS: Blood pressure is 141/75 pulse 69 respirations 18 temperature 98.2 F height is 5 feet 3 inches weight is 210 pounds. PE: PHYSICAL EXAMINATION: GENERAL: The patient is awake, alert, oriented, appropriate, very pleasant in demeanor HEENT: Shows normocephalic, atraumatic. Extraocular movements are intact and symmetrical. Oral cavity: Mucous membranes moist and pink. Dentition is intact. NECK: Shows anterior throat supple without palpable lymphadenopathy noted. Swallow reflex symmetrical. CHEST: Shows normal on inspection. Breath sounds are clear bilaterally. HEART: Shows S1, S2 clear. No murmurs auscultated. ABDOMEN: Soft, nontender, nondistended. No palpable organomegaly is noted. BACK: Shows spine grossly in the midline. Normal-appearing cervical lordotic curvature. There is slightly increased thoracic kyphosis, some mild flattening of the lumbar lordotic curvature. Lumbar paraspinous muscles show symmetrical on inspection, on palpation shows some moderate tenderness diffusely throughout the upper, middle and lower distribution of the paraspinous muscles without specific trigger points, without radiation of pain. The patient has good rotational motion of the lumbar spine, both laterally as well as extension and flexion without significant difficulty. EXTREMITIES: Lower extremities show deep tendon reflexes 2+ in the patellar and tendo calcaneus tendons. Motor exam is 4 on a scale of 5 with right rupesh siflexion, extension, quadriceps and hamstring flexion and 5/5 on the left. Peripheral pulses are 1+ posterior tibial. No peripheral edema is noted bilaterally. Lower extremities are warm and dry to touch, equal in color and appearance. SKIN: Shows warm and dry, good turgor. No edema. No sores, rashes or bruising throughout. Procedure: Procedure: Options discussed with patient. Use her current medication regimen updated current review of systems updated today as well. We will preauthorize patient for lumbar epidural steroid injection she still has clinical radiculopathy in the low back and right lower extremity in an L5-S1 dermatomal distribution. Patient continue with stretching and strength exercises in the meantime as well as oral analgesics as currently. Medication Injected: Med Injected: None Condition at Discharge: Condition at Discharge: Condition at discharge stable. DOLORES PARADA MD October 09, 2021 10:09
== END | disposition home or self-care (01) ==
LOC: PNCL 08:53
PROVIDERS: ATTEND Anesthesiology
DX: M51.16 Intervertebral disc disorders with radiculopathy, lumbar region (principal); J45.909 Unspecified asthma, uncomplicated; K21.9 Gastro-esophageal reflux disease without esophagitis; M19.90 Unspecified osteoarthritis, unspecified site; Z79.899 Other long term (current) drug therapy; Z88.2 Allergy status to sulfonamides
CPT/HCPCS: 99212; G0463

== ENCOUNTER → 2021-10-21 | Outpatient (CLI) | payer OTHER ==
[2017-05-08 10:43] VITALS: BP 103/60
[~2021-10-21] MED LIST changes: +DEXAMETHASONE PRES.FREE 10 MG/ML VIAL. ONE; +IOHEXOL 180 MG/ML 10 ML VIAL. ONE
--- NOTE | 2021-10-21 12:49 | PDOC ---
Progress Note - Pain Clinic Date of Service: DOS: DATE: 10/21/21 TIME: 12:46 Diagnosis: Dx: Lumbar radiculopathy with lumbar degenerative disease and lumbar herniated disc History or Present Illness: HPI: 45-year-old female returns for follow-up status post lumbar epidural steroid injection x2. Patient reports about 75% improvement initially but then about 40% improvement after several weeks patient reports pain returned in the low back and right lower extremity posterior gluteus posterior thigh posterior calf also significant pain in the left heel with a calcaneal bone spur present. Patient reports the pain in the low back and right leg is significant aching dull and tight in the back shooting in the right leg tingling in the feet throbbing and cramping in the back as well as stabbing in the foot and the heel on the left side patient reports the pain is mostly radiating and constant in the low back and right lower extremity patient reports a 7 on scale 10 is worse over the past week 5 on average 3 to [place] is a 5 today. Patient reports no bowel or bladder incontinence no motor or sensory deficits. Patient reports significant fatigue with right lower extremity notes when she is sitting she is leaning to her left side which is putting more pressure on her left hip causing some discomfort there but only minimal. Physical Exam: VS: Blood pressure is 130/72 pulse 73 respirations are 18 temperature is 98.2 F height is 5 foot 3 inches and weight is 210 pounds. PE: PHYSICAL EXAMINATION: GENERAL: The patient is awake, alert, oriented, appropriate, very pleasant in demeanor HEENT: Shows normocephalic, atraumatic. Extraocular movements are intact and symmetrical. Oral cavity: Mucous membranes moist and pink. Dentition is intact. NECK: Shows anterior throat supple without palpable lymphadenopathy noted. Swallow reflex symmetrical. CHEST: Shows normal on inspection. Breath sounds are clear bilaterally, no rales or rhonchi auscultated. HEART: Shows S1, S2 clear. No murmurs auscultated. ABDOMEN: Soft, nontender, nondistended. No palpable organomegaly is noted. BACK: Shows spine grossly in the midline. Normal-appearing cervical lordotic curvature. There is slightly increased thoracic kyphosis, some flattening of the lumbar lordotic curvature. Lumbar paraspinous muscles show symmetrical on inspection, on palpation shows some moderate tenderness diffusely throughout the upper, middle and lower distribution of the paraspinous muscles without specific trigger points, without radiation of pain. The patient has good rotational motion of the lumbar spine, both laterally as well as extension and flexion without significant difficulty. No tenderness over the spinous processes, sacrum or sacroiliac regions. EXTREMITIES: Lower extremities show deep tendon reflexes 2+ in the patellar and tendo calcaneus tendons. Motor exam is 4 on a scale of 5 with right do rsiflexion, extension, quadriceps and hamstring flexion and 5/5 on the left. Peripheral pulses are 1+ posterior tibial. No peripheral edema is noted bilaterally. Lower extremities are warm and dry to touch, equal in color and appearance. SKIN: Shows warm and dry, good turgor. No edema. No sores, rashes or bruising throughout. Procedure: Procedure: Options were discussed with patient. Patient's old chart was reviewed as her current medication regimen updated current review of systems updated today as well. We will proceed with a lumbar epidural steroid injection today with fluoroscopic guidance. Risks were discussed including but not limited to: Bleeding, infection, possibility of epidural hematoma and subsequent masha rological compromise, dural puncture, headaches, spinal cord and/or nerve damage, side effects of steroid medication, and poor results regarding pain control. Patient understands and wished to proceed. Patient will return to the clinic in approximately 2 weeks for follow-up, was counseled as to return appointment, activity level, and side effect to be aware of. Medication Injected: Med Injected: Procedure is lumbar epidural steroid injection under local anesthetic using st erile prep and drape at the L5-S1 level using C-arm fluoroscopic guidance in both AP and lateral views medications injected is 20 mg dexamethasone +10mL preservative-free normal saline and 2 mL contrast- condition at discharge is stable patient tolerated procedure well had no complications. Condition at Discharge: Condition at Discharge: Condition at discharge stable, patient tolerated the procedure well and had no complications. DOLORES PARADA MD October 21, 2021 12:49
--- NOTE | 2021-10-21 12:50 | PDOC4 ---
Procedure Note: ICD 10 Code: ICD 10 Code: M54.17 M51.87 Procedure Note: Patient was consented for lumbar epidural steroid injection with fluoroscopic guidance. Risks were discussed including but not limited to: Bleeding, infection, possibility of epidural hematoma and subsequent neurological compromise, dural puncture, headaches, spinal cord and/or nerve damage, side effects of steroid medication, and poor results regarding pain control. Patient understands and wished to proceed. Procedure is lumbar epidural steroid injection under local anesthetic using sterile prep and drape at the L5-S1 level using C-arm fluoroscopic guidance in both AP and lateral views medications injected is 20 mg dexamethasone +10mL preservative-free normal saline and 2 mL contrast- condition at discharge is stable patient tolerated procedure well had no complications. DOLORES PARADA MD October 21, 2021 12:50
== END | disposition home or self-care (01) ==
LOC: PNCL 11:06
PROVIDERS: ATTEND Anesthesiology
DX: M51.16 Intervertebral disc disorders with radiculopathy, lumbar region (principal); J45.909 Unspecified asthma, uncomplicated; K21.9 Gastro-esophageal reflux disease without esophagitis; M19.90 Unspecified osteoarthritis, unspecified site; Z88.2 Allergy status to sulfonamides; Z79.899 Other long term (current) drug therapy
CPT/HCPCS: 62323; J1100; Q9965